=== PATIENT | male | born 1980 | race Caucasian/White ===

== ENCOUNTER 2016-10-20 12:35 | Emergency (ER) | payer SELFPAY ==
[~2016-10-20] VITALS: Ht 175.3 cm; Wt 77.9 kg
[2016-10-20 12:38] VITALS: Ht 175.3 cm; Wt 77.9 kg
--- NOTE | 2016-10-20 13:51 | ERD ---
ER Documentation Chief Complaint Date/Time DATE: 10/20/16 TIME: 13:51 Chief Complaint right index finger pain/injury HPI Patient is a 36-year-old male with no past medical history who presents to the ED with right hand pain. He states that he was boxing, and missed and hit his hand into the wall. He states that he was diagnosed with a fracture 2 weeks ago and was given Matthews 10. He states that it helped with his pain however he ran out of his medication and he has an appointment with an system support specialist in 2 weeks. He is here for pain medicine as he states that he does not have any until his appointment. He has been wearing his hand in a splint however he has taken the splint on and off. He states that the pain is 8 out of 10. He denies numbness or tingling. Denies radiation of pain. Denies new onset trauma. ROS All systems reviewed and are negative except as per history of present illness. Medications Home Meds Active Scripts Hydrocodone/Acetaminophen (Matthews 5-325 Tablet) 1 Each Tablet, 1 TAB PO Q6H Y for PAIN, #7 TAB Prov:JAYLENE GIFFORD PA-C 10/20/16 PMhx/Soc Medical and Surgical Hx: Unable to obtain History of Surgery: No Anesthesia Reaction: No Hx Neurological Disorder: No Hx Respiratory Disorders: No Hx Cardiac Disorders: No Hx Psychiatric Problems: No Hx Miscellaneous Medical Probl: No Hx Alcohol Use: Yes (Occasional) Hx Substance Use: No Hx Tobacco Use: Yes (Occasional) Smoking Status: Current some day smoker FmHx Family History: No coronary disease, No diabetes, No other Physical Exam Vitals Vital Signs Date Time Temp Pulse Resp B/P Pulse Ox O2 Delivery O2 Flow Rate FiO2 10/20/16 12:38 98.3 110 19 113/78 97 Physical Exam GENERAL: Well-developed, well-nourished male. Appears in no acute distress. HEAD: Normocephalic, atraumatic. EYES: Pupils are equally reactive bilaterally. EOMs grossly intact. No conjunctival erythema. ENT: Moist mucous membranes. No uvula deviation. No kissing tonsils. No exudates. NECK: Supple. No lymphadenopathy or thyromegaly. No meningismus. negative kernig. negative brudinski. LUNG: Clear to auscultation bilaterally. No rhonchi, wheezing, rales or coarse breath sounds. HEART: Regular rate and rhythm. No murmurs, rubs or gallops. Extremities: Equal pulses bilaterally. No peripheral clubbing, cyanosis or edema. No unilateral leg swelling. Radius, ulnar and median nerve sensation intact. Tenderness to the lateral aspect of the dorsum of the hand. Tenderness to the first and second metacarpal. Mild ecchymosis and mild swelling. No pain in his wrist or elbow. No snuffbox tenderness. No open wounds or lacerations. NEUROLOGIC: Alert and oriented. Moving all four extremities.. Normal speech. Steady gait. SKIN: Normal color. Warm and dry. No rashes or lesions. Capillary refill < 2 seconds Procedures/MDM ER COURSE: I kept the patient and/or family informed of laboratory and diagnostic imaging results throughout the emergency room course. IMAGING STUDIES [place] [address] Radiology Main Line: [phone] DIAGNOSTIC IMAGING REPORT Patient: RADHA FINNEGAN : 1980 Age: 36 Sex: M MR #: [id number] DOS: 10/20/16 1340 Ordering MD: JAYLENE GIFFORD PA-C Location: [facility] Room/Bed: PROCEDURE: XR Hand. CLINICAL INDICATION: Trauma. Right hand pain. TECHNIQUE: Three views. Frontal, lateral, and oblique images of the right hand were obtained. COMPARISON: No prior studies are available for comparison. FINDINGS: There is an acute oblique minimally displaced fracture of the distal articular surface of the second metacarpal. There is no other fracture and there is no dislocation. The soft tissues are normal. The articular surfaces are otherwise intact. There is no lytic or blastic lesion. There is no radiopaque foreign body. IMPRESSION: 1. Acute oblique fracture of the distal articular surface of the second metacarpal. 2. Otherwise unremarkable images of the right hand. RPTAT: QQ .Henry Mg MD, MD Date Time Electronically viewed and signed by .Henry Mg MD, on 10/20/2016 15:10 .R/ CC: JAYLENE GIFFORD PA-C MEDICAL DECISION MAKING: This is a 36-year-old male who presents with right hand pain 2 weeks. Vital signs were reviewed. Patient is afebrile. Patient is not hypoxic. Patient is not toxic or ill-appearing. X-rays read by radiologist shows Acute oblique fracture of the distal articular surface of the second metacarpal. Patient states that he has a appointment with an orthopedist in 1 week. Low suspicion for dislocation, fracture, septic joint, compartment syndrome, osteomyelitis, cellulitis, avascular necrosis, neurological injury, vascular injury, tendon laceration. Patient was given a splint. He was neurovascularly intact post splint placement. One Matthews was given to patient here in the ED tolerated well with no adverse reaction. Patient was not driving home and was having someone else drive him home. DISCHARGE: At this time, patient is stable for discharge and outpatient management with no new complaints during the ER course. Patient was sent home with IV of his imaging report, prescription for 7 Matthews and to follow-up with orthopedic.. Patient will be discharged home with instructions to recheck for new or worsening symptoms such as fever, nausea, weakness, LOC and to follow up with primary care in the next 1-2 days. Patient was advised to return to the ER for any new or worsening symptoms. Plan was discussed and patient and/or family understands and agrees. Home instructions were given. Departure Diagnosis: Primary Impression: Fx metacarpal Metacarpal bone: second Fracture type: closed Metacarpal location: unspecified portion of metacarpal Fracture alignment: nondisplaced Laterality : right Condition: Stable JAYLENE GIFFORD PA-C October 20, 2016 13:51
--- NOTE | 2016-10-20 14:57 | RADRPT ---
PROCEDURE: XR Right Wrist. CLINICAL INDICATION: Trauma. Right wrist pain. TECHNIQUE: 3 views. Frontal, lateral, and oblique. COMPARISON: No prior studies are available for comparison. FINDINGS: There is an acute oblique minimally displaced fracture of the distal articular surface of the second metacarpal. There is no other fracture and there is no dislocation. The soft tissues are normal. Articular surfaces are intact. There is no lytic or blastic lesion. There is no radiopaque foreign body. IMPRESSION: 1. Acute oblique fracture of the distal articular surface of the second metacarpal. 2. Otherwise unremarkable images of the right wrist. RPTAT: QQ .Henry Mg MD, MD Date Time Electronically viewed and signed by .Henry Mg MD, on 10/20/2016 14:57 .R/
--- NOTE | 2016-10-20 15:10 | RADRPT ---
PROCEDURE: XR Hand. CLINICAL INDICATION: Trauma. Right hand pain. TECHNIQUE: Three views. Frontal, lateral, and oblique images of the right hand were obtained. COMPARISON: No prior studies are available for comparison. FINDINGS: There is an acute oblique minimally displaced fracture of the distal articular surface of the second metacarpal. There is no other fracture and there is no dislocation. The soft tissues are normal. The articular surfaces are otherwise intact. There is no lytic or blastic lesion. There is no radiopaque foreign body. IMPRESSION: 1. Acute oblique fracture of the distal articular surface of the second metacarpal. 2. Otherwise unremarkable images of the right hand. RPTAT: QQ .Henry Mg MD, Date Time Electronically viewed and signed by .Henry Mg MD, on 10/20/2016 15:10 .R/
[2016-10-20] MEDS ORDERED: HYDR-906 PO (15:39)
[2016-10-20] MEDS ORDERED: HYDROCODONE/APAP (5/325) TAB PO ONE (16:30)
== END 2016-10-20 16:10 | disposition home or self-care (01) ==
LOC: FTE 12:35
DX: S62.300A Unspecified fracture of second metacarpal bone, right hand, initial encounter for closed fracture (principal); F17.210 Nicotine dependence, cigarettes, uncomplicated; W22.8XXA Striking against or struck by other objects, initial encounter; Y92.9 Unspecified place or not applicable

== ENCOUNTER 2017-08-30 20:43 | Emergency (ER) | END 2017-08-30 23:00 | disposition left against medical advice (07) ==

== ENCOUNTER 2017-09-01 07:30 | Emergency (ER) | END 2017-09-01 10:37 | disposition home or self-care (01) ==

== ENCOUNTER 2018-04-29 05:05 | Emergency (ER) | END 2018-04-29 13:48 ==